=== PATIENT | female | born 1945 | race Caucasian/White ===

== ENCOUNTER 2016-12-21 14:54 | Emergency (ER) | payer OTHER ==
[~2016-12-21] VITALS: Wt 59.0 kg
[~2016-12-21 14:54] MED LIST: ATOR40TA68 PO; BENA40TA41 PO; D-ME473S18 PO; IBUP-1542 PO; LEVO750T8 PO; METF1000 PO
--- NOTE | 2016-12-21 18:30 | ERD ---
ER Documentation Chief Complaint Date/Time DATE: 12/21/16 TIME: 18:27 Chief Complaint LEFT KNEE PAIN AND SWELLING FROM GROUND LEVEL FALL TODAY. DISCOLORATION HPI This is a 71-year-old female who presents to the emergency department today complaining of a headache and some neck pain and left knee pain after sustaining a fall earlier today. Patient states she was carrying something heavy when she tripped and fell. Denies any previous trauma. States she is taking Tylenol for the pain. Denies any loss of consciousness, blurred vision, nausea or vomiting. ROS All systems reviewed and are negative except as per history of present illness. Medications Home Meds Active Scripts Acetaminophen* (Tylophen*) 500 Mg Capsule, 1 CAP PO Q6H Y for PAIN AND OR ELEVATED TEMP, #30 CAP Prov:ROBBIN PERRY PA-C 12/21/16 Naproxen* (Naprosyn*) 500 Mg Tablet, 500 MG PO BID Y for PAIN AND/OR INFLAMMATION, #30 TAB Prov:ROBBIN PERRY PA-C 12/21/16 Tramadol HCl (Tramadol HCl) 50 Mg Tablet, 50 MG PO Q4 Y for PAIN, #20 TAB Prov:ROBBIN PERRY PA-C 12/21/16 Dextromethorphan Hb-Promethazine Hcl (Promethazine DM Syrup) 473 Ml Syrup, 10 ML PO Q6H Y for COUGH, #4 OZ Prov:ALESSANDRO COATS MD 06/22/16 Ibuprofen* (Motrin*) 600 Mg Tab, 600 MG PO Q6H Y for PAIN AND OR ELEVATED TEMP, #30 TAB Prov:ALESSANDRO COATS MD 06/22/16 Levofloxacin* (Levofloxacin*) 750 Mg Tablet, 750 MG PO DAILY for 9 Days, TAB Prov:ALESSANDRO COATS MD 06/22/16 Reported Medications Benazepril Hcl* (Benazepril Hcl*) 40 Mg Tablet, 40 MG PO DAILY, #30 TAB 06/22/16 Atorvastatin* (Atorvastatin*) 40 Mg Tablet, 40 MG PO QHS, #30 TAB 06/22/16 Metformin Hcl* (Metformin Hcl*) 1,000 Mg Tablet, 1000 MG PO BID 07/30/12 Allergies Allergies: Coded Allergies: No Known Allergy (Verified , 06/22/16) PMhx/Soc History of Surgery: Yes (HYSTERECTOMY) Anesthesia Reaction: No Hx Neurological Disorder: No Hx Respiratory Disorders: No Hx Cardiac Disorders: Yes (HTN; HYPERLIPIDEMIA) Hx Psychiatric Problems: No Hx Miscellaneous Medical Probl: No Hx Alcohol Use: No Hx Substance Use: No Hx Tobacco Use: No Physical Exam Vitals Vital Signs Date Time Temp Pulse Resp B/P Pulse Ox O2 Delivery O2 Flow Rate FiO2 12/21/16 15:27 98.5 78 20 151/84 98 Physical Exam Const: Sitting in wheelchair, no acute distress Head: Atraumatic Eyes: Normal Conjunctiva ENT: Normal External Ears, Nose. Upper lip abrasion. Front tooth missing Neck: Full range of motion..~ No meningismus. Mild tenderness to palpation midline and right-sided paraspinal Resp: Clear to auscultation bilaterally Cardio: Regular rate and rhythm, no murmurs Abd: Soft, non tender, non distended. Normal bowel sounds Skin: No petechiae or rashes MSK left knee with no obvious deformity. Moderate effusion, moderate ecchymosis. Full active range of motion of knee. Pulses 2+. Distal neurovascularly intact. Neur: Awake and alert Psych: Normal Mood and Affect Results 24 hrs DIAGNOSTIC IMAGING REPORT Patient: PATRICIA DUBON : 1945 Age: 71 Sex: F MR #: [id number] DOS: 12/21/16 0000 Ordering MD: ROBBIN PERRY PA-C Location: [facility] Room/Bed: PROCEDURE: CT Brain without. CLINICAL INDICATION: Trauma, fall. TECHNIQUE: A CT of the brain was performed on multidetector high-resolution CT scanner utilizing axial sections from the skull base through the vertex without contrast. The scan was reviewed in soft tissue brain and high frequency resolution bone algorithm windows. Images were reviewed on a high- resolution PACS workstation. One or more the following does reduction techniques were utilized: Automated exposure control, adjustment of the mA/ or kV according to patient's size, or use of iterative reconstruction technique. The exam CTDI = 39.14 mGy and the DLP = the 634.23 mGy-cm. COMPARISON: None available. FINDINGS: The ventricles and sulci are mildly prominent indicative of volume loss. There is no intracranial hemorrhage, mass effect or midline shift. No abnormal intra- axial or extra-axial fluid collections are seen. The abdi/white matter differentiation is preserved. There are mild scattered foci of hypoattenuation in the white matter, which are nonspecific in etiology but likely reflect chronic small vessel ischemic changes. There are mild intracranial vascular calcifications consistent with atherosclerosis. The visualized paranasal sinuses are essentially clear. IMPRESSION: 1. No acute intracranial hemorrhage, transcortical infarction or mass effect. 2. Mild intracranial atherosclerosis and chronic small vessel ischemic changes. 3. Mild generalized cerebral volume loss. RPTAT: HH .Eric Burroughs MD, MD Date Time Electronically viewed and signed by .Eric Burroughs MD, MD on 12/21/2016 19: 56 .N/ CC: ROBBIN PERYR PA-C DIAGNOSTIC IMAGING REPORT Patient: PATRICIA DUBON : 1945 Age: 71 Sex: F MR #: [id number] DOS: 12/21/16 0000 Ordering MD: ROBBIN PERRY PA-C Location: [facility] Room/Bed: PROCEDURE: CT CERVICAL SPINE WITHOUT CONTRAST CLINICAL INDICATION: Trauma from fall TECHNIQUE: CT scan of the cervical spine was performed. No IV contrast was administered. Coronal and sagittal reformatted images were obtained from the axial source images. Images were reviewed on a high-resolution PACS workstation. Dose report: Total exam DLP: 492 mGy-cm. CDTIvol = 22 mGy. COMPARISON: None FINDINGS: The vertebral body heights are preserved. There are no acute fractures. There is slight straightening of the normal cervical lordosis. The craniocervical junction and C1-C2 articulation are intact. There is mild joint space narrowing at the C1-C2 articulation. The prevertebral soft tissues are within normal limits. The paraspinal musculature is unremarkable. Findings at specific disc levels: C2-3: Normal disk height. No central canal or neural foraminal narrowing. C3-4: Normal disk height. No central canal or neural foraminal narrowing. C4-5: Normal disk height. About 2 mm anterolisthesis. Mild annular bulge but no central canal or neural foraminal narrowing. C5-6: Minimal loss of disk height. Small anterior endplate osteophytes. About 1 mm anterolisthesis with a mild annular bulge but no central canal or neural foraminal narrowing. C6-7: Normal disk height. Minimal annular bulge but no central canal or neural foraminal narrowing. C7-T1: Normal disk height with small anterior endplate osteophytes. No central canal or neural foraminal narrowing. There are atherosclerotic calcifications within the aortic arch. RPTAT: HTLT IMPRESSION: 1. No acute fracture or malalignment of the cervical spine. 2. Mild degenerative disk disease at C5-C6 with a mild annular bulge and small disk osteophytes but no central canal or neural foraminal narrowing. .Anat Mendoza MD, MD Date Time Electronically viewed and signed by .Anat Mendoza MD, MD on 12/21/2016 19: 55 .T/ CC: ROBBIN PERRY PA-C DIAGNOSTIC IMAGING REPORT Patient: PATRICIA DUBON : 1945 Age: 71 Sex: F [id number]: 12/21/16 0000 Ordering MD: ROBBIN PERRY PA-C Location: [facility] Room/Bed: PROCEDURE: CT scan facial bones CLINICAL INDICATION: Trauma. Facial injury. Pain. TECHNIQUE: CT scan of the face was performed on the a high-resolution multidetector CT scanner with multiple contiguous axial images obtained through the face. Coronal and sagittal reformatted images were obtained from the axial source images. Exam CTDI = there 0.49 mGy and the DLP = 634.23 mGy-cm. COMPARISON: None available. FINDINGS: No acute fracture or dislocation is seen. No significant soft tissue swelling is noted. The orbital globes are unremarkable. Nasal septum is intact. Paranasal sinuses are clear. Periapical lucency and osteolysis is noted. IMPRESSION: 1. No acute facial fracture or dislocation. RPTAT: .Eric Burroughs MD, MD Date Time Electronically viewed and signed by .Eric Burroughs MD, MD on 12/21/2016 19: 59 .N/ CC: ROBBIN PERRY PA-C DIAGNOSTIC IMAGING REPORT Patient: PATRICIA DUBON : 1945 Age: 71 Sex: F MR #: [id number] DOS: 12/21/16 0000 Ordering MD: ROBBIN PERRY PA-C Location: [facility] Room/Bed: PROCEDURE: XR Knee. CLINICAL INDICATION: Fall TECHNIQUE: Three views of the left knee are available for review. COMPARISON: None available FINDINGS: There is no acute fracture or dislocation. The bones are mildly osteopenic. The joint spaces are maintained. There is minimal osseous spurring within the patella. Small enthesophytes are present within the superior patella at the insertion of the distal quadriceps tendon. There is no significant joint effusion. There is prominent soft tissue swelling in the anterior knee over the distal quadriceps tendon and patella. RPTAT: HTLT IMPRESSION: 1. No acute fracture or dislocation. 2. Prominent soft tissue swelling within the anterior knee over the distal quadriceps tendon and patella in which a hematoma may be present. .Anat Mendoza MD, MD Date Time Electronically viewed and signed by .Anat Mendoza MD, MD on 12/21/2016 19: 57 .T/ CC: ROBBIN PERRY PA-C Procedures/MDM This 71-year-old female who presents to the emergency department today complaining of hitting her head and left knee pain after sustaining what appears to be a mechanical fall earlier today. Patient had no loss of consciousness and has no nausea or vomiting and no focal neurologic deficits however given patient's age and the fact that she hit her head I did obtain a head CT as well as facial bones and neck CT given the patient's complaints. Head CT noncontrast shows no acute intra-cranial hemorrhage, infarct or mass- effect. There is mild intracranial atherosclerosis and chronic small vessel ischemic changes. There is mild generalized cerebral volume loss CT cervical spine shows no acute fracture or malalignment of the cervical spine. There is mild degenerative disc disease at C5 and 6 with a mild annular bulge and small disc osteophytes but no central canal or neural foraminal narrowing CT facial bones show no acute facial fracture dislocation. There is no significant soft tissue swelling. Orbital globes are unremarkable. Nasal septum is intact. Left knee x-ray shows no acute fracture dislocation. There is prominent soft tissue swelling within the anterior knee over the distal quadriceps tendon and the patella in which hematoma may be present. Joint spaces are maintained. Patient has full active range of motion of her knee and of low suspicion for patella tendon or quadriceps tendon rupture. Patient symptoms at this time is consistent with contusion versus strain and acute head injury. Patient declined pain medication here in the emergency department. She will be given a prescription for tramadol and Naprosyn and Tylenol for home. She is able to ambulate I do not feel that she requires further assistance with crutches. Patient was given an Saad wrap for compression. She was instructed to apply ice. At this time the patient is stable for discharge and outpatient management. Patient should follow up with their PCP in the next 1-2 days. They may return to the emergency department sooner for any persistent or worsening of symptoms. Patient and understood and agreed with the plan. I discussed the radiology findings with Dr. Keenan and he is in agreement with the plan. Departure Diagnosis: Primary Impression: Fall Encounter type: initial encounter Qualified Code: W19.XXXA - Fall, initial encounter Additional Impression: Acute head injury Encounter type: initial encounter Qualified Code: S09.90XA - Acute head injury, initial encounter Condition: Fair ROBBIN PERRY PA-C Dec 21, 2016 18:30
--- NOTE | 2016-12-21 19:55 | RADRPT ---
PROCEDURE: CT CERVICAL SPINE WITHOUT CONTRAST CLINICAL INDICATION: Trauma from fall TECHNIQUE: CT scan of the cervical spine was performed. No IV contrast was administered. Coronal and sagittal reformatted images were obtained from the axial source images. Images were reviewed on a high-resolution PACS workstation. Dose report: Total exam DLP: 492 mGy-cm. CDTIvol = 22 mGy. COMPARISON: None FINDINGS: The vertebral body heights are preserved. There are no acute fractures. There is slight straighten ing of the normal cervical lordosis. The craniocervical junction and C1-C2 articulation are intact. There is mild joint space narrowing at the C1-C2 articulation. The prevertebral soft tissues are wi thin normal limits. The paraspinal musculature is unremarkable. Findings at specific disc levels: C2-3: Normal disk height. No central canal or neural foraminal narrowing. C3-4: Normal disk height. No central canal or neural foraminal narrowing. C4-5: Normal disk height. About 2 mm anterolisthesis. Mild annular bulge but no central canal or n eural foraminal narrowing. C5-6: Minimal loss of disk height. Small anterior endplate osteophytes. About 1 mm anterolisthesis with a mild annular bulge but no central canal or neural foraminal narrowing. C6-7: Normal disk height. Minimal annular bulge but no central canal or neural foraminal narrowing. C7-T1: Normal disk height with small anterior endplate osteophytes. No central canal or neural fora forest narrowing. There are atherosclerotic calcifications within the aortic arch. RPTAT: HTLT IMPRESSION: 1. No acute fracture or malalignment of the cervical spine. 2. Mild degenerative disk disease at C5-C6 with a mild annular bulge and small disk osteophytes but no central canal or neural foraminal narrowing. .Anat Mendoza MD, Date Time Electronically viewed and signed by .Anat Mendoza MD, on 12/21/2016 19:55 .T/
--- NOTE | 2016-12-21 19:56 | RADRPT ---
PROCEDURE: CT Brain without. CLINICAL INDICATION: Trauma, fall. TECHNIQUE: A CT of the brain was performed on multidetector high-resolution CT scanner utilizing a xial sections from the skull base through the vertex without contrast. The scan was reviewed in sof t tissue brain and high frequency resolution bone algorithm windows. Images were reviewed on a high -resolution PACS workstation. One or more the following does reduction techniques were utilized: Aut omated exposure control, adjustment of the mA/ or kV according to patient's size, or use of iterativ e reconstruction technique. The exam CTDI = 39.14 mGy and the DLP = the 634.23 mGy-cm. COMPARISON: None available. FINDINGS: The ventricles and sulci are mildly prominent indicative of volume loss. There is no intracranial he morrhage, mass effect or midline shift. No abnormal intra-axial or extra-axial fluid collections ar e seen. The abdi/white matter differentiation is preserved. There are mild scattered foci of hypoattenuation in the white matter, which are nonspecific in etiol ogy but likely reflect chronic small vessel ischemic changes. There are mild intracranial vascular calcifications consistent with atherosclerosis. The visualized paranasal sinuses are essentially brennan ar. IMPRESSION: 1. No acute intracranial hemorrhage, transcortical infarction or mass effect. 2. Mild intracranial atherosclerosis and chronic small vessel ischemic changes. 3. Mild generalized cerebral volume loss. RPTAT: HH .Eric Burroughs MD, MD Date Time Electronically viewed and signed by .Eric Burroughs MD, MD on 12/21/2016 19:56 .N/
--- NOTE | 2016-12-21 19:58 | RADRPT ---
PROCEDURE: XR Knee. CLINICAL INDICATION: Fall TECHNIQUE: Three views of the left knee are available for review. COMPARISON: None available FINDINGS: There is no acute fracture or dislocation. The bones are mildly osteopenic. The joint spaces are m aintained. There is minimal osseous spurring within the patella. Small enthesophytes are present w ithin the superior patella at the insertion of the distal quadriceps tendon. There is no significan t joint effusion. There is prominent soft tissue swelling in the anterior knee over the distal quad riceps tendon and patella. RPTAT: HTLT IMPRESSION: 1. No acute fracture or dislocation. 2. Prominent soft tissue swelling within the anterior knee over the distal quadriceps tendon and pa tella in which a hematoma may be present. .Anat Mendoza MD, Date Time Electronically viewed and signed by .Anat Mendoza MD, on 12/21/2016 19:57 .T/
--- NOTE | 2016-12-21 19:59 | RADRPT ---
PROCEDURE: CT scan facial bones CLINICAL INDICATION: Trauma. Facial injury. Pain. TECHNIQUE: CT scan of the face was performed on the a high-resolution multidetector CT scanner wit h multiple contiguous axial images obtained through the face. Coronal and sagittal reformatted imag es were obtained from the axial source images. Exam CTDI = there 0.49 mGy and the DLP = 634.23 mGy-c m. COMPARISON: None available. FINDINGS: No acute fracture or dislocation is seen. No significant soft tissue swelling is noted. The orbita l globes are unremarkable. Nasal septum is intact. Paranasal sinuses are clear. Periapical lucency and osteolysis is noted. IMPRESSION: 1. No acute facial fracture or dislocation. RPTAT: HH .Eric Burroughs MD, MD Date Time Electronically viewed and signed by .Eric Burroughs MD, MD on 12/21/2016 19:59 .N/
[2016-12-21] MEDS ORDERED: NAPR-260 PO (20:35)
[2016-12-21] MEDS ORDERED: TRAM50TA2 PO (20:35)
[2016-12-21] MEDS ORDERED: ACET500C5 PO (20:35)
[2016-12-21 21:55] VITALS: BP 196/88; PULSE 88; RESP 18; TEMP 98
== END 2016-12-21 21:56 | disposition home or self-care (01) ==
LOC: FTE 14:54
DX: S09.90XA Unspecified injury of head, initial encounter (principal); I10 Essential (primary) hypertension; E11.9 Type 2 diabetes mellitus without complications; R51 Headache; W01.0XXA Fall on same level from slipping, tripping and stumbling without subsequent striking against object, initial encounter; Y92.9 Unspecified place or not applicable; Z79.84 Long term (current) use of oral hypoglycemic drugs
CPT/HCPCS: 70450; 70486; 72125; 73562

== ENCOUNTER 2018-11-12 09:59 | Emergency (ER) | payer OTHER ==
[~2018-11-12] VITALS: Ht 157.5 cm; Wt 54.6 kg
[~2018-11-12 09:59] MED LIST changes: +ACET500C5 PO; -BENA40TA41 PO; +BENA40TA56 PO; -METF1000 PO; +METF100010 PO; +NAPR-985 PO; +TRAM50TA2 PO
[2018-11-12 10:02] VITALS: Ht 157.5 cm; Wt 54.6 kg
[2018-11-12] MEDS ORDERED: AZIT250T PO (11:24)
[2018-11-12] MEDS ORDERED: MINE3.5O30 LEFT EYE (11:24)
[2018-11-12] MEDS ORDERED: D-ME473S2 PO (11:24)
--- NOTE | 2018-11-12 11:29 | ERD ---
ER Documentation Chief Complaint Chief Complaint Complains of left eye pain x 2 days HPI 73-year-old female presents with some redness in her left eye for last 2 days. May have started after coughing and that she has had a productive cough for last 2 weeks of abdominal pain, chest pain. ROS All systems reviewed and are negative except as per history of present illness. Medications Home Meds Active Scripts Azithromycin* (Zithromax*) 250 Mg Tablet, 250 MG PO .MakenziePACK DIRECTED, #6 TAB TAKE 500 MG (2 TABS) THE FIRST DAY THEN 250 MG (1 TAB) DAYS 2-5 Prov:SUSY STALLWORTH MD 11/12/18 Dextromethorphan Hb-Promethazine Hcl* (Promethazine DM* Syrup) 473 Ml Syrup, 5 ML PO Q6 PRN for COUGH for 4 Days, ML Prov:SUSY STALLWORTH MD 11/12/18 Mineral Oil/Petrolatum,White (ARTIFICIAL TEARS EYE OINT) 3.5 Gm Oint...g., 1 APPLIC LEFT EYE QID PRN for DRY EYES for 7 Days, #1 EA Prov:SUSY STALLWORTH MD 11/12/18 Acetaminophen* (Tylophen*) 500 Mg Capsule, 1 CAP PO Q6H PRN for PAIN AND OR ELEVATED TEMP, #30 CAP Prov:ROBBIN PERRY PA-C 12/21/16 Naproxen* (Naprosyn*) 500 Mg Tablet, 500 MG PO BID PRN for PAIN AND/OR INFLAMMATION, #30 TAB Prov:ROBBIN PERRY PA-C 12/21/16 Tramadol HCl (Tramadol HCl) 50 Mg Tablet, 50 MG PO Q4 PRN for PAIN, #20 TAB Prov:ROBBIN PERRY PA-C 12/21/16 Dextromethorphan Hb-Promethazine Hcl (Promethazine DM Syrup) 473 Ml Syrup, 10 ML PO Q6H PRN for COUGH, #4 OZ Prov:ALESSANDRO COATS MD 06/22/16 Ibuprofen* (Motrin*) 600 Mg Tab, 600 MG PO Q6H PRN for PAIN AND OR ELEVATED TEMP, #30 TAB Prov:ALESSANDRO COATS MD 06/22/16 Levofloxacin* (Levofloxacin*) 750 Mg Tablet, 750 MG PO DAILY for 9 Days, TAB Prov:COATSALESSANDRO MD 06/22/16 Reported Medications Benazepril Hcl* (Benazepril Hcl*) 40 Mg Tablet, 40 MG PO DAILY, #30 TAB 06/22/16 Atorvastatin* (Atorvastatin*) 40 Mg Tablet, 40 MG PO QHS, #30 TAB 06/22/16 Metformin Hcl* (Metformin Hcl*) 1,000 Mg Tablet, 1000 MG PO BID 07/30/12 Allergies Allergies: Coded Allergies: No Known Allergy (Verified , 06/22/16) PMhx/Soc History of Surgery: Yes (HYSTERECTOMY) Anesthesia Reaction: No Hx Neurological Disorder: No Hx Respiratory Disorders: No Hx Cardiac Disorders: Yes (HTN; HYPERLIPIDEMIA) Hx Psychiatric Problems: No Hx Miscellaneous Medical Probl: Yes (DM) Hx Alcohol Use: No Hx Substance Use: No Hx Tobacco Use: No Smoking Status: Never smoker FmHx Family History: No diabetes, No coronary disease, No other Physical Exam Vitals Vital Signs Date Temp Pulse Resp B/P (MAP) Pulse Ox O2 O2 Flow FiO2 Time Delivery Rate 11/12/18 98.2 78 16 156/86 98 Room Air 11:35 (109) 11/12/18 97.1 79 20 182/81 98 10:02 (114) Physical Exam Const: No acute distress Head: Atraumatic Eyes: Left eye subconjunctival hemorrhage. Eyes Ashley and anterior chambers appear normal. No proptosis or abnormal eye movements. Visual acuity shows no acute abnormalities bilaterally. ENT: Normal External Ears, Nose and Mouth. Neck: Full range of motion. No meningismus. Resp: Clear to auscultation bilaterally. Rhonchi without rales, wheezing or retractions. Cardio: Regular rate and rhythm, no murmurs Abd: Soft, non tender, non distended. Normal bowel sounds Skin: No petechiae or rashes Back: No midline or flank tenderness Ext: No cyanosis, or edema Neur: Awake and alert Psych: Normal Mood and Affect Procedures/MDM She presents with signs and symptoms of productive cough for last 2 weeks. She has no evidence of hypoxemia, rest or distress. She has a left eye subconjun ctival hemorrhage likely from coughing. No acute visual changes, signs of orbital cellulitis, additional eye emergencies. We will treat empirically with promethazine DM, Zithromax, primary care follow-up and return precautions. Also prescribed artificial tears and recommendations for primary care and ophthalmology evaluation for persistent symptoms. The patient was stable with no new complaints during the ER course. Clinically, there is no current evidence to suggest meningitis, sepsis, acute abdomen, pneumonia, stroke, acute coronary syndrome, pulmonary embolism, aortic dissection or any other emergent condition appearing to require further evaluation or hospitalization. Patient counseled regarding my diagnostic impression and care plan. Prior to discharge all questions answered. Pt agrees with treatment plan and understands strict return precautions. Pt is instructed to follow up with primary care provider within 24- 48 hours. Precautionary instructions provided including instructions to return to the ER if not improving or for any worsening or changing symptoms or concerns. Departure Diagnosis: Primary Impression: Subconjunctival hemorrhage Laterality: left Qualified Codes: H11.32 - Conjunctival hemorrhage, left eye Condition: Stable Patient Instructions: Bronchitis, Antiobiotic Treatment (Adult), Subconjunctival Hemorrhage Referrals: [facility] Hours: Mon - Mon 9:00 AM - 5:00 PM Additional Instructions: Cheque otro vez con diamond doctor primario en el proximo foster or regresa para mas o nueva simptomas. Va al diamond doctor/ specialista para mas evaluacon en el proximo semana. posiblemente necesita autorizado de diamond doctor primario para specialista. Regresa para fiebre, o mas o nueva simptomas. SUSY STALLWORTH MD Nov 12, 2018 11:29
[2018-11-12 11:35] VITALS: BP 156/86; PULSE 78; RESP 16
== END 2018-11-12 11:36 | disposition home or self-care (01) ==
LOC: FTE 09:59
DX: H11.32 Conjunctival hemorrhage, left eye (principal); I10 Essential (primary) hypertension; E11.9 Type 2 diabetes mellitus without complications; Z79.84 Long term (current) use of oral hypoglycemic drugs
CPT/HCPCS: 99282